=== PATIENT | male | born 1945 | race Caucasian/White ===

== ENCOUNTER 2018-04-07 14:34 | Observation (INO) | payer OTHER ==
[2018-04-07 15:17] LABS: Absolute Lymphocytes (CBC) 0.9 K/uL (0.7-4.9); Absolute Monocytes 0.8 K/uL (0.1-1.3); Absolute Neutrophil 3.3 K/uL (1.8-8.0); Basophils % 1.1 % (0-1.3); Eosinophils % 1.9 % (0-4.4); Hematocrit 43.2 % (39.6-49.0); Lymphocytes % 18.1 % (15.3-44.8); MCH 31.1 pg (27.0-35.0); MCV 90.1 fL (80-100); MPV 9.3 fL (7.6-11.3); RBC Red Blood Cell Count 4.79 M/uL (4.33-5.43)
[2018-04-07 15:22] LABS: Protime INR 0.87
--- NOTE | 2018-04-07 15:37 | RAD REPORT ---
EXAM DESCRIPTION: RAD - Chest Single View - 04/07/2018 3:25 pm CLINICAL HISTORY: chest pain Chest pain. COMPARISON: No comparisons FINDINGS: Portable technique limits examination quality. The lungs are grossly clear. The heart is normal in size. No displaced fractures.Sternotomy wires. IMPRESSION: No acute intrathoracic process suspected.
[2018-04-07] MEDS ORDERED: ASPIRIN 81 MG CHEWABLE TABLET ONE (15:41)
[2018-04-07 16:06] LABS: ALT/SGPT 29 U/L (12-78); AST/SGOT 22 U/L (15-37); Albumin 3.6 g/dL (3.4-5.0); Alkaline Phosphatase 56 U/L (45-117); BUN Blood Urea Nitrogen 12 mg/dL (7-18); Bicarbonate 31 mmol/L (21-32); Bilirubin Direct 0.2 mg/dL (0-0.2); Bilirubin Total 0.4 mg/dL (0.2-1.0); Glucose Level 99 mg/dL (74-106); Magnesium 2.3 mg/dL (1.8-2.4); NT PRO-BNP 47 pg/mL (<125); Potassium 4.1 mmol/L (3.5-5.1); Protein, Total 6.8 g/dL (6.4-8.2); Sodium Level 141 mmol/L (136-145); Troponin (Emerg Dept Use Only) < 0.02 ng/mL (0.0-0.045)
--- NOTE | 2018-04-07 16:21 | ER ---
Nurse's Notes [facility] Name: Rayomnd Alaniz Age: 72 yrs Sex: Male : 1945 Arrival Date: 04/07/2018 Time: 14:38 Bed 3 Private MD: Garland Herring B Diagnosis: Chest pain, unspecified Presentation: 04/07 14:47 Presenting complaint: Patient states: Sternal chest pain since last night. Reports aj lightheadedness today. Denies SOB or nausea. Transition of care: patient was not received from another setting of care. Onset of symptoms was April 06, 2018. Risk Assessment: Do you want to hurt yourself or someone else? Patient reports no desire to harm self or others. Initial Sepsis Screen: Does the patient meet any 2 criteria? No. Patient's initial sepsis screen is negative. Does the patient have a suspected source of infection? No. Patient's initial sepsis screen is negative. Care prior to arrival: None. 14:47 Method Of Arrival: Wheelchair aj 14:47 Acuity: PIEDAD 3 aj Triage Assessment: 14:50 General: Appears in no apparent distress. comfortable, Behavior is calm, cooperative, aj appropriate for age. Pain: Complains of pain in chest. Neuro: Level of Consciousness is awake, alert, obeys commands, Oriented to person, place, time, situation, Appropriate for age. Cardiovascular: Reports chest pain, lightheadedness, Capillary refill < 3 seconds in bilateral fingers Patient's skin is warm and dry. Respiratory: Airway is patent Respiratory effort is even, unlabored, Respiratory pattern is regular, symmetrical. Derm: Skin is intact, is healthy with good turgor, Skin is pink, warm \T\ dry. normal. Historical: - Allergies: 14:50 Levaquin; aj - Home Meds: 14:50 aspirin 81 mg Oral chew 1 tab once daily [Active]; Lipitor 10 mg Oral tab 1 tab once aj daily [Active]; - PMHx: 14:50 High Cholesterol; aj - PSHx: 14:50 CABG; aj - Immunization history:: Adult Immunizations up to date. - Social history:: Smoking status: Patient/guardian denies using tobacco. - Ebola Screening: : Patient negative for fever greater than or equal to 101.5 degrees Fahrenheit, and additional compatible Ebola Virus Disease symptoms Patient denies exposure to infectious person Patient denies travel to an Ebola-affected area in the 21 days before illness onset No symptoms or risks identified at this time. Screenin:00 Abuse screen: Denies threats or abuse. Nutritional screening: No deficits noted. aa5 Tuberculosis screening: No symptoms or risk factors identified. Fall Risk None identified. Assessment: 15:00 General: Appears comfortable, Behavior is calm, cooperative. Pain: Complains of pain in aa5 mid-sternal area Pain does not radiate. Pain currently is 1 out of 10 on a pain scale. Quality of pain is described as dull, Pain began 1 day ago. Is continuous. Neuro: Level of Consciousness is awake, alert, obeys commands, Oriented to person, place, time, situation. Cardiovascular: Heart tones S1 S2 present Pt currently denies feeling lightheaded . Rhythm is sinus bradycardia. Respiratory: Airway is patent Respiratory effort is even, unlabored, Respiratory pattern is regular, symmetrical, Breath sounds are clear bilaterally. Denies shortness of breath. GI: Abdomen is round non-distended, Bowel sounds present X 4 quads. Abd is soft and non tender X 4 quads. Patient currently denies nausea, vomiting. : No signs and/or symptoms were reported regarding the genitourinary system. EENT: No signs and/or symptoms were reported regarding the EENT system. Derm: Skin is pink, warm \T\ dry. Musculoskeletal: Range of motion: intact in all extremities. 15:27 Reassessment: Pt currently resting in bed with eyes closed, respirations are even and aa5 unlabored, skin is pink/warm/dry. Sinus Bradycardia on monitor. . 16:30 Reassessment: Patient and/or family updated on plan of care and expected duration. Pain aa5 level reassessed. Patient is alert, oriented x 3, equal unlabored respirations, skin warm/dry/pink. Pain: Pain currently is 1 out of 10 on a pain scale. 16:30 Cardiovascular: Rhythm is sinus bradycardia. aa5 17:30 Reassessment: Patient and/or family updated on plan of care and expected duration. Pain aa5 level reassessed. Patient is alert, oriented x 3, equal unlabored respirations, skin warm/dry/pink. Patient denies pain at this time. Patient states feeling better. 18:00 Reassessment: Patient is alert, oriented x 3, equal unlabored respirations, skin aa5 warm/dry/pink. Vital Signs: 14:50 BP 144 / 71; Pulse 59; Resp 16; Temp 98.0; Pulse Ox 99% on R/A; Weight 77.11 kg; Height aj 5 ft. 10 in. (177.80 cm); 15:04 BP 120 / 68; Pulse 50; Resp 17 S; Pulse Ox 97% on R/A; aa5 16:08 BP 124 / 72; Pulse 47; Resp 16 S; Pulse Ox 99% on R/A; jl7 17:30 BP 119 / 69; Pulse 58; Resp 16 S; Pulse Ox 98% on R/A; Pain 0/10; aa5 14:50 Body Mass Index 24.39 (77.11 kg, 177.80 cm) aj ED Course: 14:38 Patient arrived in ED. mr 14:38 Garland Herring MD is Private Physician. mr 14:43 [facility]. jr8 14:43 Jj Valle MD is Attending Physician. jr8 14:48 Triage completed. aj 14:50 Arm band placed on left wrist. Patient placed in an exam room. EKG completed in triage. aj Results shown to MD. 14:53 Leandra Spear, RN is Primary Nurse. aa5 15:00 Patient has correct armband on for positive identification. Placed in gown. Bed in low aa5 position. Call light in reach. Side rails up X2. clinical research monitor on. Pulse ox on. NIBP on. 15:02 EKG done, by industrial maintenance tech. reviewed by Justo CHRISTIANSON. [facility] 15:02 Initial lab(s) drawn, by ri, sent to lab. Inserted saline lock: 20 gauge in right dh3 antecubital area, using aseptic technique. Blood collected. 15:10 X-ray completed. Portable x-ray completed in exam room. Patient tolerated procedure ml well. 15:26 No provider procedures requiring assistance completed. Patient maintains SpO2 aa5 saturation greater than 95% on room air. 16:20 Fabrice Lombardi DO is Hospitalizing Provider. jr8 16:45 Urine collected: clean catch specimen, clear, . aa5 18:00 Patient admitted, IV remains in place. aa5 Administered Medications: 15:37 Drug: Aspirin Chewable Tablet 324 mg Route: PO; 5 17:45 Follow up: Response: No adverse reaction 5 15:37 CANCELLED (Physician Discretion): Nitroglycerin 0.4 mg Sublingual once 5 Outcome: 16:21 Decision to Hospitalize by Provider. jp 18:00 Admitted to Tele accompanied by tech, via wheelchair, with chart, Report called to aa5 AILYN Puckett 18:00 Condition: stable 18:00 Discharge instructions given to patient, Instructed on the need for admit, Demonstrated understanding of instructions. 18:02 Patient left the ED. 5 Signatures: Gloria Fay, RN RN Amira Whitfield, Keira, RN RN Mamie Norwood Audri RN RN [email or web address] Justo Helms, MEGHAN CHRISTIANSON jr8 Stacy Scott RN RN jl7 Elizabeth Montoya 3 Nory Olivas 3 Corrections: (The following items were deleted from the chart) 17:43 16:45 Urine collected: clean catch specimen, [place] [id number] 18:10 18:08 Patient left the ED. tram cai
--- NOTE | 2018-04-07 16:22 | EDPHYS ---
Physician Documentation [facility] Name: Raymond Alaniz Age: 72 yrs Sex: Male : 1945 Arrival Date: 04/07/2018 Time: 14:38 Bed 3 Private MD: Garland Herring B ED Physician Jj Valle HPI: 04/07 15:30 This 72 yrs old Male presents to ER via Wheelchair with complaints of Chest jr8 Pain. 15:30 The patient or guardian reports chest pain that is located primarily in the substernal jr8 area. Onset: gradually, yesterday. The pain does not radiate. Associated signs and symptoms: The patient has no apparent associated signs or symptoms. The chest pain is described as dull. Duration: The patient or guardian reports a single episode, that is still ongoing. Modifying factors: The symptoms are alleviated by nothing. the symptoms are aggravated by nothing. Severity of pain: At its worst the pain was mild in the emergency department the pain is unchanged. The patient has experienced a previous episode. The patient has not recently seen a physician. 15:31 Patient stated that he had single Bypass about 15 years ago. Stated that before that jr8 had dull feeling chest pain like has been having for the past 24 hours. Stress test two years ago with no acute findings. Denies radiation, nausea, shortness of breath. Nothing worsens or betters the pain . Historical: - Allergies: 14:50 Levaquin; aj - Home Meds: 14:50 aspirin 81 mg Oral chew 1 tab once daily [Active]; Lipitor 10 mg Oral tab 1 tab once aj daily [Active]; - PMHx: 14:50 High Cholesterol; aj - PSHx: 14:50 CABG; aj - Immunization history:: Adult Immunizations up to date. - Social history:: Smoking status: Patient/guardian denies using tobacco. - Ebola Screening: : Patient negative for fever greater than or equal to 101.5 degrees Fahrenheit, and additional compatible Ebola Virus Disease symptoms Patient denies exposure to infectious person Patient denies travel to an Ebola-affected area in the 21 days before illness onset No symptoms or risks identified at this time. ROS: 15:31 Eyes: Negative for injury, pain, redness, and discharge, ENT: Negative for injury, jr8 pain, and discharge, Neck: Negative for injury, pain, and swelling, Respiratory: Negative for shortness of breath, cough, wheezing, and pleuritic chest pain, Abdomen/GI: Negative for abdominal pain, nausea, vomiting, diarrhea, and constipation, Back: Negative for injury and pain, MS/Extremity: Negative for injury and deformity, Skin: Negative for injury, rash, and discoloration, Neuro: Negative for headache, weakness, numbness, tingling, and seizure. 15:31 Cardiovascular: Positive for chest pain, Negative for edema, orthopnea, palpitations, paroxysmal nocturnal dyspnea. Exam: 15:31 Eyes: Pupils equal round and reactive to light, extra-ocular motions intact. Lids and jr8 lashes normal. Conjunctiva and sclera are non-icteric and not injected. Cornea within normal limits. Periorbital areas with no swelling, redness, or edema. ENT: Nares patent. No nasal discharge, no septal abnormalities noted. Tympanic membranes are normal and external auditory canals are clear. Oropharynx with no redness, swelling, or masses, exudates, or evidence of obstruction, uvula midline. Mucous membranes moist. Neck: Trachea midline, no thyromegaly or masses palpated, and no cervical lymphadenopathy. Supple, full range of motion without nuchal rigidity, or vertebral point tenderness. No Meningismus. Chest/axilla: Normal chest wall appearance and motion. Nontender with no deformity. No lesions are appreciated. Cardiovascular: Regular rate and rhythm with a normal S1 and S2. No gallops, murmurs, or rubs. Normal PMI, no JVD. No pulse deficits. Respiratory: Lungs have equal breath sounds bilaterally, clear to auscultation and percussion. No rales, rhonchi or wheezes noted. No increased work of breathing, no retractions or nasal flaring. Abdomen/GI: Soft, non-tender, with normal bowel sounds. No distension or tympany. No guarding or rebound. No evidence of tenderness throughout. Back: No spinal tenderness. No costovertebral tenderness. Full range of motion. Skin: Warm, dry with normal turgor. Normal color with no rashes, no lesions, and no evidence of cellulitis. MS/ Extremity: Pulses equal, no cyanosis. Neurovascular intact. Full, normal range of motion. Neuro: Awake and alert, GCS 15, oriented to person, place, time, and situation. Cranial nerves II-XII grossly intact. Motor strength 5/5 in all extremities. Sensory grossly intact. Cerebellar exam normal. Normal gait. Vital Signs: 14:50 BP 144 / 71; Pulse 59; Resp 16; Temp 98.0; Pulse Ox 99% on R/A; Weight 77.11 kg; Height aj 5 ft. 10 in. (177.80 cm); 15:04 BP 120 / 68; Pulse 50; Resp 17 S; Pulse Ox 97% on R/A; aa5 16:08 BP 124 / 72; Pulse 47; Resp 16 S; Pulse Ox 99% on R/A; jl7 17:30 BP 119 / 69; Pulse 58; Resp 16 S; Pulse Ox 98% on R/A; Pain 0/10; aa5 14:50 Body Mass Index 24.39 (77.11 kg, 177.80 cm) aj MDM: 14:43 Patient medically screened. jr8 16:20 The patient was given aspirin in the Emergency Department. Data reviewed: vital signs, [facility] nurses notes, lab test result(s), EKG, radiologic studies, plain films, and as a result, I will admit patient. Data interpreted: Pulse oximetry: on room air is 99 %. Interpretation: normal. Counseling: I had a detailed discussion with the patient and/or guardian regarding: the historical points, exam findings, and any diagnostic results supporting the discharge/admit diagnosis, lab results, radiology results, the need for further work-up and treatment in the hospital. Physician consultation: Fabrice Lombardi DO was called at 16:20, was contacted at 16:20, regarding admission, to the telemetry unit. consult, patient's condition, and will see patient. 04/07 14:44 Order name: Basic Metabolic Panel [facility] 04/07 14:44 Order name: CBC with Diff 04/07 14:44 Order name: LFT's [facility] 04/07 14:44 Order name: Magnesium [facility] 04/07 14:44 Order name: NT PRO-BNP [facility] 04/07 14:44 Order name: PT-INR [facility] 04/07 14:44 Order name: Troponin (emerg Dept Use Only) [facility] 04/07 15:19 Order name: CBC with Automated Diff; Complete Time: 15:22 EDMS 04/07 15:29 Order name: Protime (+INR); Complete Time: 15:30 EDMS 04/07 15:29 Order name: PTT, Activated Partial Thromb; Complete Time: 15:30 EDMS 04/07 16:06 Order name: Basic Metabolic Panel; Complete Time: 16:19 EDMS 04/07 16:06 Order name: Liver (Hepatic) Function; Complete Time: 16:19 EDMS 04/07 16:06 Order name: Troponin (Emerg Dept Use Only); Complete Time: 16:19 EDMS 04/07 16:07 Order name: NT PRO-BNP; Complete Time: 16:19 EDMS 04/07 14:44 Order name: XRAY Chest (1 view) [facility] 04/07 14:44 Order name: EKG; Complete Time: 17:42 [facility] 04/07 14:44 Order name: Cardiac monitoring; Complete Time: 14:55 [facility] 04/07 14:44 Order name: EKG - Nurse/Tech; Complete Time: 14:55 [facility] 04/07 14:44 Order name: IV Saline Lock; Complete Time: 15:01 [facility] 04/07 14:44 Order name: Labs collected and sent; Complete Time: 15:01 [facility] 04/07 14:44 Order name: O2 Per Protocol; Complete Time: 14:55 [facility] 04/07 14:44 Order name: O2 Sat Monitoring; Complete Time: 14:55 [facility] 04/07 16:03 Order name: RAD; Complete Time: 16:19 EDMS 04/07 16:07 Order name: Magnesium; Complete Time: 16:19 [facility] 04/07 16:42 Order name: Diet Heart Healthy; Complete Time: 17:44 [facility] 04/07 17:47 Order name: Urine Dipstick-Ancillary; Complete Time: 18:07 EDMS Administered Medications: 15:37 Drug: Aspirin Chewable Tablet 324 mg Route: PO; aa5 17:45 Follow up: Response: No adverse reaction aa5 15:37 CANCELLED (Physician Discretion): Nitroglycerin 0.4 mg Sublingual once aa5 Disposition: 18:52 Co-signature as Attending Physician, Jj Valle MD. rn Disposition: 04/07/18 16:21 Hospitalization ordered by Fabrice Lombardi for Observation. Preliminary diagnosis is Chest pain, unspecified. - Bed requested for Telemetry/MedSurg (observation). - Status is Observation. iw - Condition is Stable. - Problem is new. - Symptoms have improved. UTI on Admission? No Signatures: Dispatcher [employer] EDMS María Guerra Gloria Saul RN RN aj Williams, Irene, RN RN iw Jj Valle MD MD rn Calderon, Audri, RN RN aa5 Justo Helms PA PA jr8 Corrections: (The following items were deleted from the chart) 15:37 15:31 Nitroglycerin 0.4 mg Sublingual once ordered. jr8 aa5 17:13 16:21 Hospitalization Ordered by Fabrice Lombardi DO for Observation. Preliminary bd diagnosis is Chest pain, unspecified. Bed requested for Telemetry/MedSurg (observation). Status is Observation. Condition is Stable. Problem is new. Symptoms have improved. UTI on Admission? No. jr8 18:08 17:13 04/07/2018 16:21 [facility] iw Preliminary diagnosis is Chest pain, unspecified. Bed requested for Telemetry/MedSurg (observation). Status is Observation. Condition is Stable. Problem is new. Symptoms have improved. UTI on Admission? No. bd
[2018-04-07] MEDS ORDERED: ACETAMINOPHEN 500 MG TAB PO PRN (16:27)
[2018-04-07] MEDS ORDERED: TRAMADOL HCL 50 MG TAB PO PRN (16:27)
[2018-04-07] MEDS ORDERED: ONDANSETRON 4 MG/2 ML VIAL IV PRN (16:27)
--- NOTE | 2018-04-07 16:37 | P.HP ---
Certification for Inpatient Patient admitted to: Observation With expected LOS: <2 Midnights Patient will require the following post-hospital care: None Practitioner: I am a practitioner with admitting privileges, knowledge of patient current condition, hospital course, and medical plan of care. Services: Services provided to patient in accordance with Admission requirements found in Title 42 Section 412.3 of the Code of Federal Regulations Patient History Date of Service: 04/07/18 Primary Care Provider: Dr. Herring; Cardiology-Dr. Perez Reason for admission: Chest pain History of Present Illness: 72-year-old male presented to the ER with chest pain. Chest pain started last night. It started at rest. It was mainly to the substernal region and slightly to the right side of the sternum. He did report some mild flushing. He denied any dizziness, lightheadedness, nausea or shortness of breath. No radiation of pain was noted Patient continue to have chest pain. He came to the emergency room for evaluation. Patient with history of CAD with prior 1 vessel bypass in 2002 and hyperlipidemia. In the ER patient was evaluated. Blood pressure within normal range. CBC unremarkable. Chest x-ray unremarkable. Sodium 141, potassium 4.1. Electrolytes unremarkable. Troponin less than 0.02. No significant ST changes noted. Patient was admitted for evaluation. When I saw the patient ER, he appeared comfortable. As mentioned above patient reports a history of CAD, CABG x1 vessel in 2002 and hyperlipidemia. He only takes aspirin 81 mg daily and Lipitor 10 mg. Home medications list reviewed: Yes - Past Medical/Surgical History Diabetic: No -: Hyperlipidemia -: CAD, CABG x1 vessel-2002 -: CABG x1 vessel 2002 Psychosocial/ Personal History: Patient is . He has no children. He currently works as an patient coordinator. - Family History Mother -: Heart disease - Social History Smoking Status: Never smoker Alcohol use: Yes CD- Drugs: No Caffeine use: Yes Place of Residence: Home Review of Systems General: As per HPI Eyes: Unremarkable ENT: Unremarkable Respiratory: Unremarkable Cardiovascular: Chest Pain, As per HPI Gastrointestinal: Unremarkable Genitourinary: Unremarkable Musculoskeletal: Unremarkable Integumentary: Unremarkable Neurological: Unremarkable Lymphatics: Unremarkable Physical Examination - Physical Exam General: Alert, In no apparent distress, Oriented x3, Cooperative HEENT: Atraumatic, Normocephalic, PERRLA, Mucous membr. moist/pink Neck: Supple, No Thyromegaly Respiratory: Clear to auscultation bilaterally, Normal air movement Cardiovascular: Normal pulses, Regular rate/rhythm Gastrointestinal: Normal bowel sounds, Soft and benign, Non-distended, No ascites, No tenderness, No masses, No rebound, No guarding Musculoskeletal: No erythema, No tenderness, No warmth Integumentary: No tenderness/swelling, No erythema, No warmth, No cyanosis Neurological: Normal speech, Normal strength at 5/5 x4 extr, Normal tone, Normal affect - Studies Laboratory Data (last 24 hrs) 04/07/18 15:02: Sodium 141, Potassium 4.1, BUN 12, Creatinine 0.90, Glucose 99, Magnesium 2.3, Total Bilirubin 0.4, AST 22, ALT 29, Alkaline Phosphatase 56 04/07/18 15:02: PT 10.2, INR 0.87, APTT 29.0 04/07/18 15:02: WBC 5.1, Hgb 14.9, Hct 43.2, Plt Count 162 Assessment and Plan - Advance Directives Does patient have a Living Will: No Does patient have a Durable POA for Healthcare: No - Code Status/Comfort Care Code Status Assessed: Yes (Patient full code.) Physician Review Additional Text: Impression: Chest pain with history of CAD and CABG x1 vessel in 2002. Hyperlipidemia Plan: Chest pain with history of CAD and CABG x1 vessel in 2002: Patient will be admitted for further evaluation. Will continue to monitor on telemetry. Will monitor cardiac enzymes. Will check echocardiogram. Patient reports history of CAD. Last stress test done over 2 years ago. Patient will likely need cardiac stress test to further assess. If abnormal patient prefers to have heart catheterization done up in [place]. Cardiology consulted. Await further recommendation. Hyperlipidemia: Will restart Lipitor at a higher dose. Will monitor closely. Will obtain lipid panel in the morning. Time Spent Managing Pts Care (In Minutes): 55
[2018-04-07] MEDS ORDERED: NITROGLYCERIN 0.4 MG/TAB SL PRN (17:05)
[2018-04-07 17:46] LABS: Urine Blood NEGATIVE (NEG); Urine Glucose NEGATIVE (NEG); Urine Protein NEGATIVE (NEG); Urine Specific Gravity 1.015 (1.005-1.030)
[2018-04-07] MEDS: ENOXAPARIN 40 MG/0.4 ML SQ SCH (19:09)
[2018-04-07] MEDS ORDERED: ATORVASTATIN 40 MG TAB PO SCH (21:00)
[2018-04-07 22:39] LABS: CKMB Creatine Kinase MB 1.4 ng/mL (0.3-3.6); Creatine Phosphokinase 87 U/L (39-308); Troponin I < 0.02 ng/mL (0.0-0.045)
[2018-04-08 05:36] LABS: Urine Appearance CLEAR; Urine Bilirubin NEGATIVE (NEG); Urine Blood NEGATIVE (NEG); Urine Color YELLOW; Urine Glucose NEGATIVE (NEG); Urine Protein NEGATIVE (NEG); Urine Specific Gravity 1.015 (1.005-1.030); Urine Urobilinogen 0.2 mg/dL (0.2-1.0); Urine pH 5.5 (5.0-7.0)
[2018-04-08 05:38] LABS: Urine Microscopic Reflex NO UMIC
[2018-04-08] MEDS: PANTOPRAZOLE 40MG TABLET PO SCH ×2 (07:30→12:24)
[2018-04-08 07:49] LABS: Absolute Monocytes 0.7 K/uL (0.1-1.3); Absolute Neutrophil 2.9 K/uL (1.8-8.0); Basophils % 1.2 % (0-1.3); Eosinophils % 2.8 % (0-4.4); Hematocrit 40.5 % (39.6-49.0); Lymphocytes % 21.8 % (15.3-44.8); MCH 31.4 pg (27.0-35.0); MCV 90.4 fL (80-100); Monocytes % 13.8 % (3.3-12.3); RBC Red Blood Cell Count 4.48 M/uL (4.33-5.43)
[2018-04-08 08:01] LABS: CKMB Creatine Kinase MB 1.1 ng/mL (0.3-3.6); Creatine Phosphokinase 57 U/L (39-308); Troponin I < 0.02 ng/mL (0.0-0.045)
[2018-04-08] MEDS ORDERED: REGADENOSON 0.4 MG/5 ML SYR IV ONE (08:18)
[2018-04-08] MEDS ORDERED: ASPIRIN EC 81 MG TAB PO SCH (09:00)
[2018-04-08 09:20] LABS: Magnesium 2.3 mg/dL (1.8-2.4); Potassium 3.9 mmol/L (3.5-5.1); Thyroid Stimulating Hormone 2.59 uIU/mL (0.360-3.740)
--- NOTE | 2018-04-08 10:54 | P.DS ---
Admission Date: 04/07/18 Discharge Date: 04/08/18 Primary Care Provider: Dr. Herring; Cardiology-Dr. Perez Disposition: ROUTINE DISCHARGE Discharge Condition: GOOD Reason for Admission: Chest pain Consultations: Cardiology-Dr. Rueda Procedures: Echocardiogram: Cardiac stress test: COMPARISON: None. TECHNIQUE: The patient was administered approximately 10mCi of Tc 99m Sestamibi prior to resting SPECT imaging of the heart. The patient was then administered approximately 30 mCi of Tc 99m Sestamibi following exercise or pharmacologic stress. Multiplanar SPECT images were reviewed. FINDINGS: Diminished radiotracer uptake involving the inferior left ventricular myocardium on rest and stress images likely is secondary to attenuation from the diaphragm Otherwise there is uniformity of radiotracer uptake involving the entire left ventricular myocardium on rest and stress images The left ventricular ejection fraction equals 57% IMPRESSION: Negative for a myocardial perfusion defect Medical Problem List: Chest pain with history of CAD and CABG x1 vessel, negative chemical stress test for ischemia Hyperlipidemia GERD suspected Brief History of Present Illness: 72-year-old male presented to the ER with chest pain. Chest pain started last night. It started at rest. It was mainly to the substernal region and slightly to the right side of the sternum. He did report some mild flushing. He denied any dizziness, lightheadedness, nausea or shortness of breath. No radiation of pain was noted Patient continue to have chest pain. He came to the emergency room for evaluation. Patient with history of CAD with prior 1 vessel bypass in 2002 and hyperlipidemia. In the ER patient was evaluated. Blood pressure within normal range. CBC unremarkable. Chest x-ray unremarkable. Sodium 141, potassium 4.1. Electrolytes unremarkable. Troponin less than 0.02. No significant ST changes noted. Patient was admitted for evaluation. When I saw the patient ER, he appeared comfortable. As mentioned above patient reports a history of CAD, CABG x1 vessel in 2002 and hyperlipidemia. He only takes aspirin 81 mg daily and Lipitor 10 mg. Hospital Course: Patient presented with chest pain Patient with history of CAD and CABG x1 vessel. Patient admitted for evaluation. Cardiac enzymes unremarkable. No significant EKG changes noted. Echocardiogram and cardiac stress test performed. Chemical stress test showed no stress-induced ischemia. Patient evaluated by Cardiology. No further intervention required. Patient will continue with aspirin 81 mg daily. Patient will follow up with cardiology in 1- 2 weeks to follow up this hospitalization. Chest pain may be related to underlying GERD. At discharge patient will continue with Protonix 40 mg 1 pill once daily. Patient may benefit with GI evaluation as an outpatient to further address. Patient has hyperlipidemia. Lipid panel well controlled. Patient will continue with Lipitor 10 mg 1 pill daily. Vital Signs/Physical Exam: Temp Pulse Resp BP Pulse Ox 98.4 F 80 18 107/65 98 04/08/18 08:00 04/08/18 08:00 04/08/18 08:00 04/08/18 08:00 04/08/18 08:00 General: Alert, In no apparent distress, Oriented x3, Cooperative HEENT: Atraumatic, Mucous membr. moist/pink Neck: Supple, No Thyromegaly Respiratory: Clear to auscultation bilaterally, Normal air movement Cardiovascular: Normal pulses, Regular rate/rhythm Gastrointestinal: Normal bowel sounds, Soft and benign, Non-distended, No tenderness, No masses, No rebound, No guarding Musculoskeletal: No erythema, No tenderness, No warmth Integumentary: No tenderness/swelling, No erythema, No warmth, No cyanosis Neurological: Normal speech, Normal strength at 5/5 x4 extr, Normal tone, Normal affect Laboratory Data at Discharge: WBC 4.8 K/uL (4.3-10.9) 04/08/18 07:02 Hgb 14.1 g/dL (13.6-17.9) 04/08/18 07:02 Hct 40.5 % (39.6-49.0) 04/08/18 07:02 Plt Count 145 K/uL (152-406) L 04/08/18 07:02 PT 10.2 SECONDS (9.5-12.5) 04/07/18 15:02 INR 0.87 04/07/18 15:02 APTT 29.0 SECONDS (24.3-36.9) 04/07/18 15:02 Sodium 141 mmol/L (136-145) 04/08/18 07:02 Potassium 3.9 mmol/L (3.5-5.1) 04/08/18 07:02 BUN 15 mg/dL (7-18) 04/08/18 07:02 Creatinine 0.90 mg/dL (0.55-1.3) 04/08/18 07:02 Glucose 89 mg/dL (74-106) 04/08/18 07:02 Magnesium 2.3 mg/dL (1.8-2.4) 04/08/18 07:02 Total Bilirubin 0.4 mg/dL (0.2-1.0) 04/07/18 15:02 AST 22 U/L (15-37) 04/07/18 15:02 ALT 29 U/L (12-78) 04/07/18 15:02 Alkaline Phosphatase 56 U/L (45-117) 04/07/18 15:02 Troponin I < 0.02 ng/mL (0.0-0.045) 04/08/18 07:02 Triglycerides 56 mg/dL (<150) 04/08/18 07:02 Cholesterol 133 mg/dL (<200) 04/08/18 07:02 HDL Cholesterol 68 mg/dL (40-60) H 04/08/18 07:02 Cholesterol/HDL Ratio 1.96 04/08/18 07:02 Home Medications: Aspirin [Adult Aspirin] 1 tab PO BEDTIME 04/07/18 Atorvastatin Calcium [Lipitor*] 10 mg PO BEDTIME 04/07/18 Pantoprazole [Protonix Tab*] 40 mg PO ACB #30 tab 04/08/18 New Medications: Pantoprazole [Protonix Tab*] 40 mg PO ACB #30 tab Patient Discharge Instructions: 1. Patient will need a follow up with his PCP in 1 week to follow up this hospitalization. 2. Patient presented with chest pain. Patient with history of CAD and CABG x1 vessel. Patient admitted for evaluation. Cardiac enzymes unremarkable. No significant EKG changes noted. Echocardiogram and cardiac stress test performed. Chemical stress test showed no stress-induced ischemia. Patient evaluated by Cardiology. No further intervention required. Patient will continue with aspirin 81 mg daily. Patient will follow up with cardiology in 1-2 weeks to follow up this hospitalization. 3. Chest pain may be related to underlying GERD. At discharge patient will continue with Protonix 40 mg 1 pill once daily. Patient may benefit with GI evaluation as an outpatient to further address. 4. Patient has hyperlipidemia. Lipid panel well controlled. Patient will continue with Lipitor 10 mg 1 pill daily. Diet: AHA Activity: Ad jonatan Time spent managing pt's care (in minutes): 55
[2018-04-08] MEDS: ENOXAPARIN 40 MG/0.4 ML SQ SCH (12:24)
--- NOTE | 2018-04-08 14:05 | RAD REPORT ---
EXAM DESCRIPTION: NM - Rest Stress Cardiac Imaging - 04/08/2018 1:57 pm CLINICAL HISTORY: Chest pain. COMPARISON: None. TECHNIQUE: The patient was administered approximately 10mCi of Tc 99m Sestamibi prior to resting SPE CT imaging of the heart. The patient was then administered approximately 30 mCi of Tc 99m Sestamibi f ollowing exercise or pharmacologic stress. Multiplanar SPECT images were reviewed. FINDINGS: Diminished radiotracer uptake involving the inferior left ventricular myocardium on rest and stress images likely is secondary to attenuation from the diaphragm Otherwise there is uniformity of radiotracer uptake involving the entire left ventricular myocardium on rest and stress images The left ventricular ejection fraction equals 57% IMPRESSION: Negative for a myocardial perfusion defect
--- NOTE | 2018-04-09 06:59 | EKG ---
Test Date: 2018-04-07 Test Time: 14:46:59 Yarn Inspector: MARGARET MEASUREMENT RESULTS: Intervals: Rate: 54 CO: 216 QRSD: 104 QT: 434 QTc: 411 [place]: P: 66 CO: 216 QRS: -6 T: 71 INTERPRETIVE STATEMENTS: Sinus bradycardia with 1st degree AV block Septal infarct, age undetermined Abnormal ECG Compared to ECG 06/07/2007 15:45:55 First degree AV block now present Myocardial infarct finding now present Electronically Signed On 04-09-18 06:55:25 CDT by Bong Rueda
--- NOTE | 2018-04-09 08:12 | ECHO ---
HEIGHT: 5 ft 10 in WEIGHT: 168 lb 4.8 oz DATE OF STUDY: 04/08/[address]: Fabrice Lombardi DO 2-DIMENSIONAL: YES M.MODE: YES DOPPLER: YES COLOR FLOW: YES TDS: NO PORTABLE: NO DEFINITY: NO BUBBLE STUDY: NO DIAGNOSIS: CHEST PAIN, HISTORY OF CORONARY ARTERY DISEASE CARDIAC HISTORY: CATHERIZATION: YES SURGERY: YES PROSTHETIC VALVE: NO PACEMAKER: NO MEASUREMENTS (cm) DIASTOLIC (NORMALS) SYSTOLIC (NORMALS) IVSd 0.9 (0.6-1.2) LA Diam 3.2 (1.9-4.0) LVEF 65% LVIDd 4.5 (3.5-5.7) LVIDs 2.9 (2.0-3.5) %FS 35% LVPWd 0.9 (0.6-1.2) Ao Diam 3.3 (2.0-3.7) 2 DIMENSIONAL ASSESSMENT: RIGHT ATRIUM: NORMAL LEFT ATRIUM: NORMAL RIGHT VENTRICLE: NORMAL LEFT VENTRICLE: NORMAL TRICUSPID VALVE: NORMAL MITRAL VALVE: NORMAL PULMONIC VALVE: NORMAL AORTIC VALVE: NORMAL PERICARDIAL EFFUSION: NONE AORTIC ROOT: NORMAL LEFT VENTRICULAR WALL MOTION: NORMAL DOPPLER/COLOR FLOW: MILD TO MODERATE AORTIC REGURGITATION. MILD TRICUSPID REGURGITATION. COMMENTS: MILD TO MODERATE AORTIC REGURGITATION. MILD TRICUSPID REGURGITATION. NORMAL LEFT VENTRICULAR SIZE AND FUNCTION. TECHNOLOGIST: Juhi MCADAMS
--- NOTE | 2018-04-09 08:15 | TREADPHA ---
DX: CHEST PAIN, HISTORY OF CORONARY ARTERY DISEASE Date of Study: 04/08/2018 Ht: 5 10 Wt: 168 lb 4.8 oz Consulting Physician: NAFISA MEDICATIONS: TYLENOL, ASPIRIN, LIPITOR, LOVENOX, NITROSTAT, ZOFRAN, PROTONIX, ULTRAM HISTORY: 72 YEAR OLD MALE HERE FOR CHEST PAIN. HISTORY OF CORONARY ARTERY BYPASS SURGERY AND HIGH CHOLESTEROL. PHYSICIAL EXAMINATION: RESTING B.P.: 122/64 RESTING H.R.: 52 RESTING EKG: NORMAL PROTOCOL: LEXISCAN EXERCISE TIME: 3:30 B.P. AT PEAK STRESS: 117/55 IMPRESSION: LEXISCAN STRESS TEST PERFORMED. CARDIOLITE INJECTED PER PROTOCOL. DENIES ANY CHEST PAIN. PREMATURE ATRIAL COMPLEXES NOTED THROUGHOUT TEST. SEE NUCLEAR MEDICINE REPORT.
== END 2018-04-08 15:46 | disposition home or self-care (01) ==
LOC: ER 14:34 → ERHOLD 16:23 → 2ND 17:54
PROVIDERS: ADMIT Family Medicine; ATTEND Family Medicine
DX: R07.9 Chest pain, unspecified (principal); I87.2 Venous insufficiency (chronic) (peripheral); I25.10 Atherosclerotic heart disease of native coronary artery without angina pectoris; Z95.1 Presence of aortocoronary bypass graft; E78.5 Hyperlipidemia, unspecified
CPT/HCPCS: 36415; 71045; 78452; 80048 ×2; 80061; 80076; 81003 ×2; 82550 ×2; 82553 ×2; 83735 ×2; 83880; 84439; 84443; 84484 ×3; 85025 ×2; 85610; 85730; 93005; 93017; 93306; 99285; A9500; G0378 ×2; J1650 ×2; J2785

== ENCOUNTER 2018-09-15 08:47 | Day surgery (SDC) | payer OTHER ==
[2018-09-07 10:15] LABS: Absolute Lymphocytes (CBC) 0.9 K/uL (0.7-4.9); Absolute Monocytes 0.5 K/uL (0.1-1.3); Absolute Neutrophil 2.7 K/uL (1.8-8.0); Basophils % 1.1 % (0-1.3); Eosinophils % 3.2 % (0-4.4); Hematocrit 43.6 % (39.6-49.0); Lymphocytes % 21.3 % (15.3-44.8); MPV 9.4 fL (7.6-11.3); Monocytes % 12.7 % (3.3-12.3); Potassium 4.2 mmol/L (3.5-5.1); RBC Red Blood Cell Count 4.76 M/uL (4.33-5.43)
[2018-09-07 10:17] LABS: Albumin 3.8 g/dL (3.4-5.0); Bilirubin Direct 0.2 mg/dL (0-0.2); Bilirubin Total 0.6 mg/dL (0.2-1.0); Protein, Total 6.7 g/dL (6.4-8.2)
--- NOTE | 2018-09-07 19:05 | EKG ---
Test Date: 2018-09-07 Test Time: 09:40:11 Food Service Counter Clerk: MAURICIO MEASUREMENT RESULTS: Intervals: Rate: 45 ID: [id number] QRSD: 96 QT: 452 QTc: 390 [place]: P: 63 ID: [id number] QRS: -13 T: 50 INTERPRETIVE STATEMENTS: Marked sinus bradycardia with 1st degree AV block Septal infarct, age undetermined Abnormal ECG Compared to ECG 04/07/2018 14:46:59 No significant changes Electronically Signed On 09-07-18 19:03:04 STORE SHOPPER by Bong Rueda
[2018-09-15] MEDS ORDERED: Ringers Lactate 1,000 ML IV ONE ×2 (09:04→11:14)
[2018-09-15] MEDS ORDERED: PROPOFOL 200 MG/20 ML VIAL IV ONE (09:20)
[2018-09-15] MEDS ORDERED: FENTANYL CITR 100 MCG/2 ML ONE (09:20)
[2018-09-15] MEDS ORDERED: ROCURONIUM 50 MG/5 ML VIAL IV ONE (09:21)
[2018-09-15] MEDS ORDERED: LIDOCAINE 2% MPF 5 ML VIAL ONE (09:22)
[2018-09-15] MEDS ORDERED: MIDAZOLAM HCL 2 MG/2 ML INJ ONE (09:23)
[2018-09-15] MEDS ORDERED: ONDANSETRON 4 MG/2 ML VIAL ONE (09:23)
[2018-09-15] MEDS ORDERED: BUPIVACAINE 0.5% PF 10 ML VIAL ONE (09:23)
[2018-09-15] MEDS ORDERED: CEFOXITIN/SWI 1gm 1 GM/10 ML SYR ONE (09:29)
[2018-09-15] MEDS ORDERED: EPHEDRINE SULF 50 MG/ML VIAL ONE (10:08)
[2018-09-15] MEDS ORDERED: NEOSTIGMINE 1 MG/ML -10 ML VIAL ONE (10:36)
[2018-09-15] MEDS ORDERED: GLYCOPYRROLATE 0.2 MG/ML SYR ONE (10:36)
[2018-09-15] MEDS: HYDROMORPHONE HCL 1 MG/ML INJ ONE ×3 (11:00→11:15)
[2018-09-15] MEDS ORDERED: PROMETHAZINE 25 MG/ML VIAL ONE (11:10)
[2018-09-15] MEDS ORDERED: HYDROMORPHONE HCL 1 MG/ML INJ ONE (11:25)
[2018-09-15] MEDS: MIDAZOLAM HCL 2 MG/2 ML INJ ONE ×2 (11:30→11:38)
[2018-09-15] MEDS ORDERED: CODEINE 30MG/APAP 300MG TAB ONE (12:33)
--- NOTE | 2018-09-15 21:33 | OP ---
Date of Procedure: 09/15/2018 Surgeon: Albin Adler MD Preoperative Diagnosis: Symptomatic cholelithiasis. Postoperative Diagnosis: Symptomatic cholelithiasis. Procedure: Laparoscopic cholecystectomy. Estimated Blood Loss: Minimal. Specimen: Gallbladder. Findings: As above. Anesthesia: General. Complications: None. Disposition: The patient tolerated the procedure in stable condition and was taken to Recovery in go od general condition. Procedure In Detail: The patient was brought to the OR and placed in supine position. General anest hesia was begun. The patient was prepped and draped in usual sterile fashion. Marcaine 0.5% was inf iltrated locally. A 15-blade was used to make a 1-cm supraumbilical midline incision. Subcutaneous tissue was divided. The fascia was identified and divided. A #1 Vicryl stay suture was placed. Per itoneal cavity was entered with sharp and blunt dissection. A 12-mm trocar was placed into the perit barajsa cavity under direct vision. Pneumoperitoneum was established, and three 5-mm trocars were plac ed, one in the epigastrium just to the right of midline and two in the right subcostal region. Lapar oscopy revealed chronic inflammation of the gallbladder with minimal omental adhesions to the fundus and infundibulum. Fundus was retracted superiorly, and infundibulum was identified after the adhesio ns were taken down with sharp and blunt dissection and retracted inferolaterally. Cystic duct and cy stic artery were clearly identified with blunt dissection. Clips were placed. Both structures were divided. Cautery was used to remove the gallbladder from the liver bed. Bleeding on the liver bed w as controlled with cautery. The gallbladder was retrieved through the umbilicus via an EndoCatch bag . Right upper quadrant was irrigated. Effluent was clear. No evidence of bleeding or bile leakage was appreciated. Subsequently, all trocars were removed under direct vision. There was minimal oozi ng noted on the right lateral 5-mm trocar site, and a #1 Vicryl suture was used to secure that withou t any difficulty. Then, all trocars were removed under direct vision. Stay sutures were tied to eac h other to reapproximate the fascial defect. Subcutaneous wounds were irrigated. Bleeding was contr olled with cautery. A 3-0 chromic was used to reapproximate the subcutaneous tissue, and orly wer e used to close the skin. Sterile dressing was applied. The patient was awakened and taken to [facility] in good general condition. Discharge Note: The patient will go to Day Surgery and home when stable. Disposition: Home. Condition: Stable. Discharge Instructions: Resume home medications and diet. Activity as tolerated. No heavy lifting. Remove outer dressing in 2 days. Shower. Keep wound clean and dry. Follow up in my office in a chava salter. Call for appointment. Tylenol No. 3 one tablet p.o. q.4 hours p.r.n. pain. /MODL Voice ID: [id number] Report ID: [id number]
== END 2018-09-15 14:48 | disposition home or self-care (01) ==
LOC: OR 08:47
PROVIDERS: ATTEND Surgery
PROC: 0FT44ZZ Resection of Gallbladder, Percutaneous Endoscopic Approach (ICD-10-PCS; principal; 2018-09-15 10:30)
DX: K80.10 Calculus of gallbladder with chronic cholecystitis without obstruction (principal); I25.10 Atherosclerotic heart disease of native coronary artery without angina pectoris; Z88.3 Allergy status to other anti-infective agents; Z95.1 Presence of aortocoronary bypass graft
CPT/HCPCS: 93005; 85025; 80048; 36415; 82150; 80076; 88304; 47562; J2704; J2710; J2550; J2250 ×2; J3010; J1170 ×2; J2405